=== PATIENT | female | born 1955 | race African-American/Black ===

== ENCOUNTER 2016-07-04 13:10 | Emergency (ER) | payer OTHER ==
[~2016-07-04] VITALS: Wt 69.0 kg
[2016-07-04] MEDS ORDERED: ACETAMINOPHEN 325 MG TAB PO ONE (15:00)
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
[2016-07-04] MEDS ORDERED: ACET500C5 PO (15:49)
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
[2016-07-04 15:55] VITALS: BP 127/73; PULSE 66; RESP 18; TEMP 98
== END 2016-07-04 16:00 | disposition home or self-care (01) ==
LOC: FTE 13:10
DX: S09.90XA Unspecified injury of head, initial encounter (principal); R51 Headache; V49.40XA Driver injured in collision with unspecified motor vehicles in traffic accident, initial encounter
CPT/HCPCS: 70450; 72125; Z7502; Z7610

== ENCOUNTER 2018-05-14 08:00 | Emergency (ER) | END 2018-05-14 10:45 | disposition home or self-care (01) ==

== ENCOUNTER 2019-04-18 11:22 | Emergency (ER) | payer MEDICARE, OTHER ==
[~2019-04-18] VITALS: Ht 165.1 cm; Wt 66.0 kg
[~2019-04-18 11:22] MED LIST: ACET-141 PO; ACET500C5 PO; HYDR-4011 PO; MED4DP PO; NAPR-985 PO
[2019-04-18 11:36] VITALS: BP 126/89; PULSE 90; RESP 18; Ht 165.1 cm; Wt 66.0 kg
== END 2019-04-18 13:29 | disposition home or self-care (01) ==
LOC: E/R 11:22
DX: M54.5 Low back pain (principal); E11.9 Type 2 diabetes mellitus without complications; V49.9XXA Car occupant (driver) (passenger) injured in unspecified traffic accident, initial encounter; Y92.481 Parking lot as the place of occurrence of the external cause
CPT/HCPCS: 72100